=== PATIENT | female | born 1950 | race Caucasian/White ===

== ENCOUNTER 2022-08-24 11:12 | Emergency (ER) | payer MEDICARE ==
[~2022-08-24] VITALS: Ht 170.2 cm; Wt 56.7 kg
[~2022-08-24 11:12] MED LIST: IBUPROFEN200 MG PO; VITAMIN C500 MG PO; VITAMIN D1000 UNI1 PO; magnesium PO
[2022-08-24] MEDS ORDERED: KETOROLAC TROMETHAMINE 30 MG/ML VIAL IV STA (11:46)
[2022-08-24] MEDS ORDERED: ONDANSETRON HCL INJ 2MG/ML 2ML 2 MG/ML VIAL IV STA (11:46)
[2022-08-24] MEDS ORDERED: DEXAMETHASONE SOD PHOS 10 MG/1 ML VIAL IV ONE (12:00)
[2022-08-24] MEDS ORDERED: SODIUM CHLORIDE 0.9% 1000ML 500 ML IV ONE (12:00)
[2022-08-24] MEDS ORDERED: DIPHENHYDRAMINE HCL 25 MG CAP PO ONE (12:00)
[2022-08-24] MEDS ORDERED: SODIUM CHLORIDE 0.9% 1000ML 1,000 ML ONE (12:03)
[2022-08-24] MEDS ORDERED: FIORICET 50-301 EACH PO (12:55)
[2022-08-24] MEDS ORDERED: ONDANSETRON ODT4 MG PO (12:55)
[2022-08-24] MEDS ORDERED: METHOCARBAMOL750 MG PO (12:55)
== END 2022-08-24 13:26 | disposition home or self-care (01) ==
LOC: ER 11:43
DX: G44.209 Tension-type headache, unspecified, not intractable (principal); M54.2 Cervicalgia
CPT/HCPCS: 70450; 99284; J1100; J1885; J2405; J7030